=== PATIENT | male | born 1965 | race Caucasian/White ===

== ENCOUNTER 2023-07-06 11:39 | Emergency (ER) | payer OTHER, SELFPAY ==
[2023-07-06] VITALS (8 sets, daily range): BP systolic 155–171; BP diastolic 88–104; PULSE 86–88; RESP 16–18; TEMP 36.8; O2SAT 96–98; BMI 34.7
--- NOTE | 2023-07-06 11:49 | ECG_ITS ---
APPROVED REPORT Exam: Resting ECG HR:82 bpm ECG Measurements Heart Rate 82 AXES CA 156 P 76 QRSd 109 QRS 109 QT 341 T 3 QTc 380 Conclusion SINUS RHYTHM Electronically signed by : LEYDI RIVAS, 07/06/2023 15:56:55
--- NOTE | 2023-07-06 12:20 | ED_ITS ---
Discharge Plan Disposition Patient Disposition: Home, Self-Care Referrals Follow up/Referrals: Emory Yee MD [Physician] - See instructions ProviderJaqui MD [Referring] - See instructions Activity Restrictions/Add. Instructions Additional Instructions/Restrictions: Contact Dr. Emory Yee, information here. Schedule follow-up for evaluation for inspire implant. Call your family doctor to establish care for this visit to the emergency department and schedule follow-up within 48 hours to ensure improvement. If you have any worsening of your condition or any other concerning signs or symptoms, return to the emergency department or your primary care doctor for further evaluation. Clinical Impressions Clinical Impression: Vasovagal syncope Instructions Patient Instructions: DI for Syncope in Adults (Fainting), DI for Syncope in Children (Fainting) Discharge ED Provider: Trevor Devlin HPI General Chief Complaint: Syncope Stated Complaint: syncope Time Seen by Provider: 07/06/23 11:45 History of Present Illness HPI narrative: 57-year-old male history of pulmonary hypertension, JESSICA, hypertension COPD still currently smoking presenting with multiple syncopal episodes. He states this is been going on for months. He has been worked up by cardiology in the past couple of days and had catheterization/stress test and these both came back normal. Is unable to wear CPAP at night due to claustrophobia. States that he has presyncopal and syncopal episodes when coughing, sucking on candy, swallowing, and does not know how to control them. Has seen his family doctor, but feels as if his symptoms have been brushed off. Coming in for further evaluation. Not currently having symptoms and denies chest pain, shortness of breath, nausea, vomiting, palpitations, neurologic deficits, or any other concerns. Related Data Allergies Allergy/AdvReac Type Severity Reaction Status Date / Time No Known Allergies Allergy Verified 07/06/23 12:35 [facility] Disclaimer: The information contained in this section may have been updated after the patient was seen, as this information can be updated by other users. Social History Smoking Status: Current every day smoker alcohol intake: current current occupational status: other Travel in the last 8 weeks: None ROS Obtained: Yes All systems reviewed & no additional complaints except as documented Physical Exam General General appearance: alert Neck Neck exam: Present trachea midline Chest Chest inspection: Present normal inspection and symmetric chest wall rise Respiratory Respiratory exam: Present normal lung sounds bilaterally; Absent respiratory distress, wheezes, stridor, accessory muscle use or prolonged expiratory phase Cardiovascular Cardiovascular exam: Present regular rate and normal rhythm Extremities Exam Extremities exam: Absent edema Neurological Exam Neurological exam: Present alert, oriented X3 and CN II-XII intact Skin Skin exam: Present warm and dry; Absent cyanosis, diaphoresis or pallor HEART Score HEART Score HEART Score assessment performed?: Yes History (anamnesis): Slightly suspicious ECG: Normal Age: 45-65 years Risk factors: 3 or more risk factors Troponin: </= normal limit HEART Score: 3 Critical Care Critical Care Time Critical Care Time: No Medical Decision Making Medical Records Medical records reviewed: Yes I reviewed the patient's medical records. Jim Inquiry Pt receiving controlled substance: No Jim was queried for this patient: No Vital Signs Vital Signs: 07/06/23 11:40 07/06/23 11:57 07/06/23 12:00 Temperature 98.2 F Temperature Source Oral Pulse Rate 87 86 Pulse Rate [Right] 86 Respiratory Rate 16 Blood Pressure 170/104 H 164/88 H Blood Pressure [Right Arm] 171/100 H Blood Pressure Mean 126 120 Blood Pressure Mean [Right Arm] 123 Blood Pressure Source [Right Arm] Automatic Cuff Blood Pressure Position [Right Arm] Sitting 02 Sat by Pulse Oximetry 97 97 98 Oxygen Delivery Method Room Air Room Air Room Air 07/06/23 12:30 07/06/23 13:00 07/06/23 13:30 Temperature Temperature Source Pulse Rate 86 86 Pulse Rate [Right] Respiratory Rate Blood Pressure 168/100 H 155/96 H 158/93 H Blood Pressure [Right Arm] Blood Pressure Mean 126 115 114 Blood Pressure Mean [Right Arm] Blood Pressure Source [Right Arm] Blood Pressure Position [Right Arm] 02 Sat by Pulse Oximetry 97 96 Oxygen Delivery Method Room Air Room Air 07/06/23 14:00 Temperature Temperature Source Pulse Rate 87 Pulse Rate [Right] Respiratory Rate Blood Pressure 163/97 H Blood Pressure [Right Arm] Blood Pressure Mean 110 Blood Pressure Mean [Right Arm] Blood Pressure Source [Right Arm] Blood Pressure Position [Right Arm] 02 Sat by Pulse Oximetry 96 Oxygen Delivery Method Room Air Lab Data Labs: Lab Results 07/06/23 12:00: WBC 11.5 H, RBC 5.82, Hgb 19.7 H, Hct 59.3 H, MCV 101.9 H, MCH 33.8 H, MCHC 33.2, RDW 14.8, Plt Count 248, MPV 7.1 L, Neut % (Auto) 76.2, Lymph % (Auto) 14.2, Traverse % (Auto) 6.9, Eos % (Auto) 1.7, Baso % (Auto) 0.9, Neut # (Auto) 8.8 H, Lymph # (Auto) 1.6, Traverse # (Auto) 0.8, Eos # (Auto) 0.2, Baso # (Auto) 0.1, Sodium 138, Potassium 3.9, Chloride 102, Carbon Dioxide 32 H, Anion Gap 7.9, BUN 12, Creatinine 0.90, Estimated GFR 88, Est GFR ( Amer) 106, Glucose 90, Calcium 8.8, Magnesium 2.3, Total Bilirubin 0.6, AST 33, ALT 38, Alkaline Phosphatase 91, Troponin I < 0.01, NT-Pro-B Natriuret Pep 130 H, Total Protein 6.9, Albumin 3.9, Globulin 3.0, Albumin/Globulin Ratio 1.3 07/06/23 12:00 07/06/23 12:00 Response Orders (Tests/Meds): ED MEDICATIONS Discontinued Medications Generic Name Dose Route Start Last Admin Trade Name Freq PRN Reason Stop Dose Admin Albuterol/Ipratropium 6 ml 07/06/23 12:12 07/06/23 12:43 Ipratropium/Albuterol 3 Ml Neb IH 07/06/23 12:13 6 ml ONCE ONE Administration ORDERS Category Date Time Status Brain Natriuretic Peptide Stat Lab 07/06/23 12:00 Completed CBC w/Auto Diff [Complete Blood Count Auto Diff] Stat Lab 07/06/23 12:00 Completed CMP [Comprehensive Metabolic Panel] Stat Lab 07/06/23 12:00 Completed MAG [Magnesium] Stat Lab 07/06/23 12:00 Completed Trop I [Troponin I] Stat Lab 07/06/23 12:00 Completed Troponin I Q3H Lab 07/06/23 15:15 Ordered Troponin I Q3H Lab 07/06/23 18:15 Ordered MDM Narrative Medical Decision Narrative: 57-year-old male history of pulmonary hypertension, JESSICA, hypertension COPD still currently smoking presenting with multiple syncopal episodes. He states this is been going on for months. He has been worked up by cardiology in the past couple of days and had catheterization/stress test and these both came back normal. Is unable to wear CPAP at night due to claustrophobia. States that he has presyncopal and syncopal episodes when coughing, sucking on candy, swallowing, and does not know how to control them. Has seen his family doctor, but feels as if his symptoms have been brushed off. Coming in for further evaluation. Not currently having symptoms and denies chest pain, shortness of breath, nausea, vomiting, palpitations, neurologic deficits, or any other concerns. History was obtained via conversation with patient. On arrival, patient hemodynamically stable, alert, oriented x4, appropriate, GCS 15, moving all extremities spontaneously, pupils equal and reactive to light. Full physical exam performed and significant for well-appearing male no acute distress. Mildly hypertensive, not tachycardic. Lungs with bilateral minimal end expiratory wheezing, cardiac and pulmonary exam within normal limits otherwise Differential includes vasovagal syncope, orthostatic syncope, hypoxemia, arrhythmia, ACS, KS, COPD exacerbation, among others. Patient was given DuoNeb x 2 for symptomatic management and correction of underlying abnormalities. Workup independently interpreted and significant for elevated leukocytes, hemoglobin, hematocrit concerning for hemoconcentration and dehydration. Chemistry normal, troponin and BNP within normal limits. See radiology read for full review of final results. Independent interpretation of EKG shows sinus rhythm 82 beats a minute without ST or T wave changes concerning for acute anemia. UT, QRS, QT intervals within normal limits. Right axis deviation. Heart score 3. On reevaluation, patient resting comfortably in bed remains baseline.Given patient presentation, workup, history, this most likely represents vasovagal syncope in the setting of dehydration versus orthostatic syncope. Given patient recently had negative cardiogenic workup, this is much less likely. Because patient intolerant of sleep apnea CPAP, he was referred to ENT for further evaluation for inspire implant.
[2023-07-06 12:21] LABS: Basophils # 0.1 K/mm3 (0-0.2); Basophils % 0.9 % (0.1-2.0); Eosinophils # 0.2 K/mm3 (0.0-0.4); Eosinophils % 1.7 % (0.1-12.0); Hematocrit 59.3 % (42.0-52.0); Lymphocytes # 1.6 K/mm3 (0.7-4.5); Lymphocytes % 14.2 % (10-50); Mean Corpuscular HGB Conc 33.2 g/dL (31.8-35.4); Mean Corpuscular Hemoglobin 33.8 pg (27.0-31.2); Mean Corpuscular Volume 101.9 fl (80-94); Mean Platelet Volume 7.1 fl (7.4-10.4); Monocytes # 0.8 K/mm3 (0.1-1.0); Monocytes % 6.9 % (1.7-9.3); Neutrophils # 8.8 K/mm3 (1.8-7.8); Neutrophils % 76.2 % (37.0-80.0); Platelet Count 248 K/mm3 (142-424); Red Blood Count 5.82 M/mm3 (4.60-6.20); Red Cell Distribution Width 14.8 % (11.5-17.5); White Blood Count 11.5 K/mm3 (4.8-10.8)
[2023-07-06 12:26] LABS: Chloride 102 mmol/L (98-107); Potassium 3.9 mmoL/L (3.5-5.1); Sodium 138 mmol/L (136-145)
[2023-07-06 12:28] LABS: Blood Urea Nitrogen 12 mg/dl (9-20); Estimated Glomerular Filt Rate 88 ml/min (>60); GFR (African American) 106 ML/MIN (>60)
[2023-07-06 12:29] LABS: Alanine Aminotransferase 38 U/L (12-78); Albumin Level 3.9 g/dl (3.5-5.0); Albumin/Globulin Ratio 1.3 (1.1-1.8); Alkaline Phosphatase 91 U/L (38-126); Anion Gap 7.9 mEq/L (5-15); Aspartate Amino Transferase 33 U/L (17-59); Bilirubin,Total 0.6 mg/dl (0.2-1.3); Calcium 8.8 mg/dl (8.4-10.2); Carbon Dioxide 32 mmol/L (22.0-30.0); Glucose 90 mg/dl (74-100); Magnesium 2.3 mg/dl (1.6-2.3); Total Protein,Serum 6.9 g/dl (6.3-8.2)
[2023-07-06] MEDS: IPRATROPIUM/ALBUTEROL 3 ML NEB 6 ML IH (12:43)
[2023-07-06 12:55] LABS: Hemoglobin 19.7 g/dL (14.1-18.0)
--- NOTE | 2023-07-06 12:56 | PC.NURSE ---
Rounded on patient. No needs at this time.
[2023-07-06 13:38] LABS: NT Pro Brain Natriuretic Pep. 130 pg/mL (0-125)
[2023-07-06 13:43] LABS: Troponin I < 0.01 ng/ml (0.00-0.034)
== END 2023-07-06 14:43 | disposition home or self-care (01) ==
PROVIDERS: Emergency Provider Emergency Medicine; PCP Family Medicine
DX: R55 Syncope and collapse (principal); I27.20 Pulmonary hypertension, unspecified; G47.33 Obstructive sleep apnea (adult) (pediatric); I10 Essential (primary) hypertension; J44.9 Chronic obstructive pulmonary disease, unspecified; F17.210 Nicotine dependence, cigarettes, uncomplicated
CPT/HCPCS: 80053; 83735; 83880; 84484; 85025; 93005; 99285

== ENCOUNTER 2024-09-30 10:43 | Emergency (ER) | payer OTHER, SELFPAY ==
--- OUTSIDE RECORDS SUMMARY | 2024-08-21 11:00 | XMS_ITS | Encounter Summary ---
Author Organization Healthcare Address [address] [place] [address] Care Team Providers Care Lens Gauger Name Role Phone Pcp, No Primary Care Provider Unavailabl e Reason for Referral * Consultation (Routine) - Authorized Specialty Diagnoses / Procedures Referred By Shelby moura Referred To Contact Diagnoses JESSICA (obstructive sleep apnea) Usman Bell DO [address] [place] [address] Phone: tel: fax: Referral ID Status Reason Start Date Expiration Date V isits Requested Visits Authorized [id number] Authorized 08/21/2024 02/20/2026 1 1 Reason for Visit * Reason Comments inspire Encounter Details Date Type Department Care Team (Late st Contact Info) Description 08/21/2024 11:00 AM EDT Office Visit [facility] Sleep Disorder Center [address] [place] [address] Usman Bell DO [address] [place] [address] JESSICA (obstructive sleep apnea) (Primary Dx) Social History Tobacco Use Types Packs/Day Years Used Date Smoking Tobacco: Every Day Cigarettes 3 45.4 Started: 1979 Passive Smoke Exposure: Current Smokeless Tobacco: Never Alcohol Use Standard Drinks/Week Comments Yes 0 (1 standard drink = 0.6 oz pur e alcohol) once a day of beer. PHQ-2 Answer Date Recorded Patient Health Questionnaire-2 Score 0 07/28/2024 Sex and Gender Information Value Date Recorded Sex Assigned at Male 05/09/2024 6:15 AM EST Legal Sex Male 8:54 PM EDT Gender Identity Not on file Sexual Orientation Not on file documented as of this encounter Last Filed Vital Signs Vital Sign Reading Time Taken Comments Blood Pressure 151/89 08/21/2024 11:00 AM EDT Pulse 60 08/21/2024 11:00 AM EDT Temperature - - Respiratory Rate - - Oxygen Saturation 98% 08/21/2024 11:00 AM EDT Inhaled Oxygen Concentration - - Weight 112 kg (246 lb 14.6 oz) 08/21/2024 10:54 AM EDT Height 182.9 cm (6') 08/21/2024 10:54 AM EDT Body Mass Index 33.49 08/21/2024 10:54 AM EDT documented in this encounter Miscellaneous Notes * Progress Notes - Usman Bell, - 08/21/2024 11:00 AM EDT Visit Type: Established patient Chief Complaint: JESSICA follow up, with inspire History of Present Illness (HPI): Date of Implant - 05/09/24 - Last visit - Outgoing settings - Amplitude- 1.0 Sensation - 0.8 V Functional 1.0 Delay - 30 mins Duration - 6 h Pause- 30 mins Follow up 8 weeks Interval visit - His incoming settings were at amplitude 1.7. The patient is still sleepy, however is able to tolerate inspire without any trouble. ROS: 14 Systems negative except as per HPI. Complete PE Constitutional: No acute distress. Neck: supple, symmetric, trachea at midline. Pulmonary: Breathing equal and symmetrical. Neurologic: grossly intact, extraocular muscles intact. Psychiatric: alert and oriented to place, person, and time. Judgement and insight normal. Assessment JESSICA CPAP intolerance s/p inspire placement Suspected copd Ongoing heavy tobacco abuse BMI 34 Cpap intolerance Htn Plan: Inspire activated - Outgoing settings - Amplitude- 1.7 Range - 1.7-2.7 Delay - 30 mins Duration - 6 h Pause- 30 mins Follow up 8 weeks Work up level every other week as he tolerates Counseling Documentation: The patient was counseled regarding risks and benefit of treatment options. Reviewed data card download and the importance of compliance with therapy. Education provided was verbal counseling.Additional time was spent in care coordination including medical record review. The total time of encounterwas 20 minutes. . -never drive if drowsy. The patient is to let family or friends know if they are sleepy. Pull off the road to a safe location, until help arrives. - Exercise and weight loss can reduce sleep apnea severity. documented in this encounter Plan of Treatment Upcoming Encounters Date Type Department Care Team (Late st Contact Info) Description 10/02/2024 10:00 AM EDT Office Visit [facility] [address] [place] [address] Adan Hernández MD [address] [place] [address] 10/16/2024 11:40 AM EDT Office Visit [facility] Sleep Disorder Center [address] [place] [address] Usman Bell DO [address] [place] [address] Scheduled Referrals Name Type Priority Associated Diagnoses Orde r Schedule Follow Up Sleep Medicine Outpatient Referral Routine JESSICA (obstructive sleep apnea) Expected: 10/16/2024, Expires: 09/20/2025 documented as of this encounter Visit Diagnoses Diagnosis JESSICA (obstructive sleep apnea)- Primary Obstructive sleep apnea (adult) (pediatric) documented in this encounter Additional Health Concerns Assessment Noted Time A fall risk assessment has been complete d for the patient 08/21/2024 10:58 AM EDT A Body Mass Index follow-up plan has been documented for the patient 08/21/2024 4:54 PM EDT documented as of this encounter Care Teams Lens Gauger Relationship Specialty Start Date End Date Pcp, Nisha [address] [place] [address] PCP - General Family Medicine 08/31/23 09/03/24 documented as of this encounter
--- OUTSIDE RECORDS SUMMARY | 2024-09-04 13:15 | XMS_ITS | Encounter Summary ---
Author Organization Healthcare Address [address] [place] [address] Care Team Providers Care Rigger Name Role Phone Adan Hernández MD Unavailable [phone] Tamika Johnson MD Primary Care Provider [phone] Reason for Visit * Reason Comments Follow-up Encounter Details Date Type Department Care Team (Late st Contact Info) Description 09/04/2024 1:15 PM EDT Office Visit [facility] [address] [place] [address] Adan Hernández MD [address] [place] [address] Cellulitis of abdominal wall (Primary Dx); Encounter for adjustment and management of other implanted devices Social History Tobacco Use Types Packs/Day Years Used Date Smoking Tobacco: Every Day Cigarettes 3 45.4 Started: 1977 Passive Smoke Exposure: Current Smokeless Tobacco: Never Tobacco Cessation:Ready to Q uit: Not Asked; Counseling Given: Not Answered Alcohol Use Standard Drinks/Week Comments Yes 0 (1 standard drink = 0.6 oz pur e alcohol) once a day of beer. PHQ-2 Answer Date Recorded Patient Health Questionnaire-2 Score 0 09/04/2024 Sex and Gender Information Value Date Recorded Sex Assigned at Male 05/09/2024 6:15 AM EST Legal Sex Male 8:54 PM EDT Gender Identity Not on file Sexual Orientation Not on file documented as of this encounter Last Filed Vital Signs Vital Sign Reading Time Taken Comments Blood Pressure 133/87 09/04/2024 1:17 PM EDT Pulse 65 09/04/2024 1:17 PM EDT Temperature 36.5 C (97.7 F) 09/04/2024 1:17 PM EDT Respiratory Rate 20 09/04/2024 1:17 PM EDT Oxygen Saturation 98% 09/04/2024 1:17 PM EDT Inhaled Oxygen Concentration - - Weight 109 kg (240 lb 15.4 oz) 09/04/2024 1:17 P M EDT Height 182.9 cm (6') 09/04/2024 1:17 PM EDT Body Mass Index 32.68 09/04/2024 1:17 PM EDT documented in this encounter Functional Status * Over the past 2 weeks, how often have you been bothered by any of the following problems? Question Answer Date of Assessment Author Little interest or pleasure in doing things Not at all 09/04/2024 1:20 PM EDT Day, Jonna D Feeling down, depressed, or hopeless Not at all 08/24 1:20 PM EDT Day, Jonna D Patient Health Questionnaire-2 Score 0 08/24 1:20 PM EDT Day, Jonna D documented as of this encounter Miscellaneous Notes * Progress Notes - Adan Hernández MD - 09/04/2024 1:15 PM EDT Referring physician: No referring provider defined for this encounter. Chief Complaint: Erectile Dysfunction HPI: 58 y.o. male with a history notable for erectile dysfunction. He underwent penile prosthesis insertion on 07/27/23. His initial postoperative course was complicated by subcutaneous hematoma that slowly improved over the a few weeks. He has since recovered well from surgery and presents today fordevice activation and teaching. He actually had sex using this device even though it wasn't fully inflated. He denies fever, chills, redness, any signs of infection. Physical Exam: Visit Vitals Smoking Status Every Day Patient in no acute distress Penoscrotal incision well healed left lower abdominal incision is almost entirely healed, but at the corner there is serous red discharge, I expressed about 3-5 ml, no purulence or surrounding erythema or tenderness to suggest infection Normal circumcised phallus. Meatus patent. No cutaneous lesions. Normal testes bilaterally without nodules. Pump present in dependent scrotum Penile hematoma has completely resolved Device Cycling: The implant inflated and deflated appropriately. The patient was instructed on this process and demonstrated his ability to inflate and deflate the device on his own. The cylinder tips filled the glans symmetrically upon full inflation. Problems addressed in this visit: erectile dysfunction s/p inflatable penile prosthesis insertion Assessment and Plan: 58 y.o. male with erectile dysfunction s/p penile prosthesis insertion in 07/2024. He is doing well and has been cleared to resume enjoyable sexual activity. He appears to have had a small seroma beneath the LLQ that I expressed today. This does not appear to be associated with infection. I sent him 10 days of doxycyline as a precaution and will recheck his abdominal incision next week. RTC 09/14/24 for wound check documented in this encounter Plan of Treatment Upcoming Encounters Date Type Department Care Team (Late st Contact Info) Description 10/02/2024 10:00 AM EDT Office Visit [facility] [address] [place] [address] Adan Hernández MD [address] [place] [address] 10/16/2024 11:40 AM EDT Office Visit [facility] Sleep Disorder Center [address] [place] [address] Usman Bell DO [address] [place] [address] documented as of this encounter Visit Diagnoses Diagnosis Cellulitis of abdominal wall- Primary Cellulitis and abscess of trunk Encounter for adjustment and management of other implanted devices documented in this encounter Additional Health Concerns Assessment Noted Time A fall risk assessment has been complete d for the patient 09/04/2024 1:20 PM EDT A Body Mass Index follow-up plan has been documented for the patient 09/04/2024 1:41 PM EDT documented as of this encounter Care Teams Rigger Relationship Specialty Start Date End Date Tamika Johnson MD [address] [place] [address] PCP - General 09/04/24 Adan Hernández MD [id number] [place] [address] Consulting Physician Urology 09/04/24 documented as of this encounter
--- OUTSIDE RECORDS SUMMARY | 2024-09-14 10:30 | XMS_ITS | Encounter Summary ---
Author Organization Healthcare Address [address] [place] [address] Care Team Providers Care Sales Associate Cashier Name Role Phone Adan Hernández MD Unavailable [phone] Tamika Johnson MD Primary Care Provider [phone] Encounter Details Date Type Department Care Team ([facility] st Contact Info) Description 09/14/2024 10:30 AM EDT Office Visit Medical Office Building Urology [address] [facility], [address] [place] [address] Adan Hernández MD [address] [facility] [address] [place] [address] Erectile dysfunction, unspecified erectile dysfunction type (Primary Dx) Social History Tobacco Use Types Packs/Day Years Used Date Smoking Tobacco: Every Day Cigarettes 3 45.4 Started: 1979 Passive Smoke Exposure: Current Smokeless Tobacco: Never Alcohol Use Standard Drinks/Week Comments Yes 0 (1 standard drink = 0.6 oz pur e alcohol) once a day of beer. PHQ-2 Answer Date Recorded Patient Health Questionnaire-2 Score 0 09/14/2024 PHQ-9 Answer Date Recorded Patient Health Questionnaire-9 Score 0 09/14/2024 Sex and Gender Information Value Date Recorded Sex Assigned at Male 05/09/2024 6:15 AM EST Legal Sex Male 8:54 PM EDT Gender Identity Not on file Sexual Orientation Not on file documented as of this encounter Last Filed Vital Signs Vital Sign Reading Time Taken Comments Blood Pressure 125/80 09/14/2024 10:04 AM EDT Pulse 88 09/14/2024 10:04 AM EDT Temperature 36.7 C (98.1 F) 09/14/2024 10:04 AM EDT Respiratory Rate - - Oxygen Saturation 98% 09/14/2024 10:04 AM EDT Inhaled Oxygen Concentration - - Weight 109 kg (240 lb 4.8 oz) 09/14/2024 10:04 A M EDT Height 185.4 cm (6' 1 ) 09/14/2024 10:04 AM EDT Body Mass Index 31.7 09/14/2024 10:04 AM EDT documented in this encounter Functional Status * Over the past 2 weeks, how often have you been bothered by any of the following problems? Question Answer Date of Assessment Author Little interest or pleasure in doing things Not at all 09/14/2024 10:05 AM Rodrick Clemons Feeling down, depressed, or hopeless Not at all 09/14/2024 10:05 AM Rodrick Clemons Patient Health Questionnaire -2 Score 0 09/14/2024 10:05 AM Rodrick Clemons * Question Answer Date of Assessment Author Trouble falling or staying asleep, or sleeping too much Not at all 09/14/2024 10:05 AM Rodrick Clemons Feeling tired or having griffin le energy Not at all 09/14/2024 10:05 AM Rodrick Clemons Poor appetite or overeating Not at all 09/14/2024 10 :05 AM Rodrick Clemons Feeling bad about yourself - or that you are a failure or have let yourself or your family down Not at all 09/14/2024 10:05 AM Rodrick Pisano Trouble concentrating on thi ngs, such as reading the newspaper or watching television Not at all 09/14/2024 10:05 AM Rodrick Clemons Moving or speaking so slowly that other people could have noticed? Or the opposite - being so fidgety or restless that you have been moving around a lot more than usual. Not at all 09/14/2024 10:05 AM Rodrick Clemons Thoughts that you would be b surya off or hurting yourself in some way Not at all 09/14/2024 10:05 AM Rodrick Clemons Patient Health Questionnaire -9 Score 0 09/14/2024 10:05 AM Rodrick Clemons * If you checked off any problems on this questionnaire so far, Question Answer Date of Assessment Author How difficult have these problems made it for you to do your work, take care of things at home, or get along with other people? Not difficult at all 09/14/2024 10:05 AM Rodrick Clemons documented as of this encounter Miscellaneous Notes * Progress Notes - Adan Hernández MD - 09/14/2024 10:30 AM EDT Images from the original note were not included. Referring physician: No referring provider defined for this encounter. Chief Complaint: Erectile Dysfunction HPI: 58 y.o. male with a history notable for erectile dysfunction. He underwent penile prosthesis insertion on 07/27/23. His initial postoperative course was complicated by subcutaneous hematoma that slowly improved over the a few weeks. He has since recovered well from surgery and presented for device activation and teaching on 09/04/24. At that time I noticed very small volume serous drainage fromthe lateral corner of his left lower quadrant counter incision. There was no purulence, tenderness,or redness to suggest device infection. I started him on PO antibiotics and he returns today for repeat wound check. He has used the implant and is very pleased with the function of the device. He again denies fever, chills, redness, any signs of infection. He does endorse very small volume fluid discharge from the counter incision. Physical Exam: Visit Vitals BP 125/80 Pulse 88 Temp 36.7 ??C (98.1 ??F) Ht 1.854 m (6' 1 ) Wt 109 kg (240 lb 4.8 oz) SpO2 98% BMI 31.70 kg/m?? Smoking Status Every Day BSA 2.37 m?? Patient in no acute distress Penoscrotal incision well healed left lower abdominal incision is almost entirely healed, but in the middle of the incision there guillermo very tiny opening and there is clear serous discharge, I expressed about 1-2 ml, no purulence or surrounding erythema or tenderness to suggest infection Normal circumcised phallus. Meatus patent. No cutaneous lesions. Normal testes bilaterally without nodules. Pump present in dependent scrotum Penile hematoma has completely resolved Problems addressed in this visit: erectile dysfunction s/p inflatable penile prosthesis insertion Assessment and Plan: 58 y.o. male with erectile dysfunction s/p penile prosthesis insertion in 07/2024. He is doing well and has been cleared to resume enjoyable sexual activity. He appears to have had a small seroma beneath the LLQ that appears to be slowly resolving. This does not appear to be associated with infection. He has completed 10 days of doxycyline as a precautionand will recheck his abdominal incision in two weeks. He knows to contact me if he notices any changes in the volume or character of the drainage or any concerns for infection. RTC in two weeks for wound check documented in this encounter Plan of Treatment Upcoming Encounters Date Type Department Care Team (Late st Contact Info) Description 10/02/2024 10:00 AM EDT Office Visit [facility] [address] [place] [address] Adan Hernández MD [address] [place] [address] 10/16/2024 11:40 AM EDT Office Visit [facility] Sleep [facility] Center [address] [place] [address] Usman Bell DO [address] [place] [address] documented as of this encounter Visit Diagnoses Diagnosis Erectile dysfunction, unspecified erectile dysfunction type- Primary documented in this encounter Additional Health Concerns Assessment Noted Time PHQ-9 Depression Total Score: 0 09/15/19 25 10:05 AM EDT A fall risk assessment has been complete d for the patient 09/14/2024 10:06 AM EDT A Body Mass Index follow-up plan has been documented for the patient 09/14/2024 10:21 AM EDT documented as of this encounter Care Teams Sales Associate Cashier Relationship Specialty Start Date End Date Tamika Johnson MD [address] [place] [id number] PCP - General 09/04/24 Adan Hernández MD [address] [facility] [address] [place] [address] Consulting Physician Urology 09/04/24 documented as of this encounter
[2024-09-30] VITALS (10 sets, daily range): BP systolic 113–133; BP diastolic 65–102; PULSE 73–87; RESP 15–23; TEMP 36.6; O2SAT 94–97; BMI 32.5
--- NOTE | 2024-09-30 10:53 | ECG_ITS ---
APPROVED REPORT Exam: Resting ECG HR:81 bpm ECG Measurements Heart Rate 81 AXES FL 154 P 74 QRSd 119 QRS 105 QT 375 T 41 QTc 413 Conclusion SINUS RHYTHM WITH SINUS ARRHYTHMIA RIGHT AXIS DEVIATION [QRS AXIS > 100] POSSIBLE INFERIOR MYOCARDIAL INFARCTION , PROBABLY OLD [30 ms Q WAVE IN II/aVF] No STEMI Electronically signed by : KALIN GIRALDO, 09/30/2024 14:58:54
--- NOTE | 2024-09-30 10:55 | PC.NURSE ---
FSBS was 116 at this time.
--- OUTSIDE RECORDS SUMMARY | 2024-09-30 11:05 | XMS_ITS | Encounter Summary ---
Author Organization Healthcare Address [address] [place] [address] Care Team Providers Care Caretaker Grounds Name Role Phone Pcp, No Primary Care Provider Unavailabl e Encounter Details Date Type Department Care Team (Latest Contact Info) Description 08/21/2024 Travel Social History Tobacco Use Types Packs/Day Years [...] on file documented as of this encounter Plan of Treatment Upcoming Encounters Date Type Department Care Team (Late st Contact Info) Description 10/02/2024 10:00 AM EDT Office Visit [facility] [address] [place] [address] Adan Hernández MD [address] [place] [address] 10/16/2024 11:40 AM EDT Office Visit [facility] Sleep Disorder Center [address] [place] [address] Usman Bell, DO [address] [place] [address] documented as of this encounter Visit Diagnoses Not on filedocumented in this encounter Additional Health Concerns Assessment Noted Time A fall risk assessment has been complete d for the patient 08/21/2024 10:58 AM EDT A Body Mass Index follow-up plan has been documented for the patient 08/21/2024 4:54 PM EDT documented as of this encounter Care Teams Caretaker Grounds Relationship Specialty Start Date End Date Pcp, [place] [address] PCP - General Family Medicine 08/31/23 09/03/24 documented as of this encounter
--- OUTSIDE RECORDS SUMMARY | 2024-09-30 11:05 | XMS_ITS | Encounter Summary ---
Author Organization Healthcare Address [address] [place] [address] Care Team Providers Care Test Examiner Name Role Phone Adan Hernández MD Unavailable [phone] Tamika Johnson MD Primary Care Provider [phone] Encounter Details Date Type Department Care Team (Late st Contact Info) Description 09/19/2024 Telephone [facility] [address] [place] [address] Adan Hernández MD [address] [place] [address] Social History Tobacco Use Types Packs/Day Years [...] on file documented as of this encounter Miscellaneous Notes * Telephone Encounter - Adan Hernández MD - 09/19/2024 8:57 AM EDT Called patient to check in. He reports that the left lower quadrant incision has improved, feels less swollen, and is no longer having any fluid drainage. He denies redness, tenderness, pain, fevers,or other concerns for infection. This is encouraging and we will continue to closely monitor. documented in this encounter Plan of Treatment Upcoming Encounters Date Type Department Care Team (Late st Contact Info) Description 10/02/2024 10:00 AM EDT Office Visit [facility] [address] [place] [address] Adan Hernández MD [address] [facility] [address] [place] [address] 10/16/2024 11:40 AM EDT Office Visit [facility] Sleep Disorder Center [address] [place] [phone] Usman Bell DO [address] [place] [address] documented as of this encounter Visit Diagnoses Not on filedocumented in this encounter Additional Health Concerns Assessment Noted Time PHQ-9 Depression Total Score: 0 09/15/19 10:05 AM EDT A fall risk assessment has been complete d for the patient 09/14/2024 10:06 AM EDT A Body Mass Index follow-up plan has been documented for the patient 09/14/2024 10:21 AM EDT documented as of this encounter Care Teams Test Examiner Relationship Specialty Start Date End Date Tamika Johnson MD [address] [place] [address] PCP - General 09/04/24 Adan Hernández MD [address] [place] [address] Consulting Physician Urology 09/04/24 documented as of this encounter
--- OUTSIDE RECORDS SUMMARY | 2024-09-30 11:05 | XMS_ITS | Clinical Summary ---
Author Organization Healthcare Address [address] [place] [address] Care Team Providers Care Linter Saw Sharpener Name Role Phone Adan Hernández MD Unavailable Tamika Johnson MD Primary Care Provider [phone] Allergies No known active allergies Medications albuterol (2.5 MG/3ML) 0.083% nebulizer solution as needed. 4 Active ergocalciferol 1.25 MG (33801 UT) capsule Take 1 capsule by mouth 1 (one) time per week. Wednesday 4 Active hydroCHLOROthia zide (HYDRODiuril) 25 MG tablet Take 2 tablets by mouth in the morning. 4 Active losartan (Cozaar) 50 MG tablet Take 1 tablet by mouth in the morning. 4 Active sildenafil (Revatio) 20 MG tablet TAKE UP TO FIVE (5) TABLETS BY MOUTH DAILY NEEDED AT LEAST ONE HOUR PRIOR TO SEXUAL ACTIVITY 4 Active testosterone cypionate (Depo-Testoster one) 200 MG/ML injection Inject 1 mL into the muscle 1 (one) time per week. Wednesday 4 Active B-D 3CC LUER-JUAN SYR 20GX1 20G X 1 3 ML misc USE DIRECTED FOR WEEKLY INJECTIONS 3 Active B-D 3CC LUER-JUAN SYR 32MH0-4/2 21G X 1-1/2 3 ML misc USE DIRECTED FOR WEEKLY INJECTIONS 4 Active Umeclidinium-Vi lanterol (Anoro Ellipta) 62.5-25 MCG/ACT aerosol powder aerosol powder Inhale 1 Inhalation nightly. Pt reports taking every once in a while. Active albuterol 108 (90 Base) MCG/ACT inhaler Inhale 2 puffs as needed in the morning and 2 puffs as needed at noon and 2 puffs as needed in the evening and 2 puffs as needed before bedtime for wheezing. Active omeprazole OTC (PriLOSEC OTC) 20 MG EC tablet Take 1 tablet by mouth in the morning. Do not crush, chew, or split. Active HYDROcodone-autumn taminophen (Loogootee) 5-325 MG tablet Take 1 tablet (5 mg of hydrocodone) by mouth every 6 (six) hours if needed for moderate pain for up to 25 doses. 25 tablet 5 Active Additional Information Patient not taking.Reported on 09/14/2024 tadalafil (Adcirca) 20 MG tablet TAKE ONE (1) TABLET EVERY DAY BY ORAL ROUTE. 4 Active oxyCODONE (Roxicodone) 5 MG immediate release tablet Take 1 tablet by mouth every 6 hours as needed for severe pain. 8 tablet 5 Active Additional Information Patient not taking.Reported on 09/04/2024 meloxicam (Mobic) 15 MG tablet Take 1 tablet PO daily as needed for pain. 30 tablet 5 Active Additional Information Patient not taking.Reported on 09/04/2024 methocarbamol (Robaxin) 750 MG tablet 5 Active methylPREDNISol one (Medrol Dospak) 4 MG tablets 5 Active HYDROcodone-autumn taminophen (Loogootee) 7.5-325 MG tablet 5 Active doxycycline (Adoxa) 100 MG tabletIndicatio ns:Cellulitis of abdominal wall Take 1 tablet by mouth 2 times a day for 10 days. Take with a full glass of water and do not lie down for at least 30 minutes after 20 tablet 5 09/15/19 25 Active Problems Problem Noted Date Diagnosed Date Erectile dysfunction 06/26/2024 JESSICA (obstructive sleep apnea) 09/09/2023 Encounters Date Type Department Care Team Description 09/19/2024 Telephone [facility] Urology [address], [address] [place] [address] Adan Hernández MD 09/14/2024 10:30 AM EDT Office Visit [facility] U[facility] [address] [facility], [address] [place] [address] Adan Hernández MD Erectile dysfunction, unspecified erectile dysfunction type (Primary Dx) 09/14/2024 Travel 09/04/2024 1:15 PM EDT Office Visit [facility] Urology [address], [address] [place] [address] Adan Hernández MD Cellulitis of abdominal wall (Primary Dx); Encounter for adjustment and management of other implanted devices 09/04/2024 Travel 08/21/2024 11:00 AM EDT Office Visit [facility] Disorder [facility] [address] [facility] [place] [phone] Usman Bell DO JESSICA (obstructive sleep apnea) (Primary Dx) 08/21/2024 Travel 08/03/2024 Telephone [facility] Otolaryngology [address], 3[address] [place] [address] Gatito Dobbs PA 07/31/2024 11:15 AM EDT Office Visit [facility] Urology [address], [address] [place] [address] Adan Hernández MD Erectile dysfunction, unspecified erectile dysfunction type (Primary Dx) 07/31/2024 Travel 07/28/2024 8:00 AM EDT Office Visit [facility] Urology [address] 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) 07/28/2024 Travel 07/27/2024 Telephone [facility] Urology [address], [address] [place] [address] Adna Hernández MD 07/26/2024 8:00 AM EDT Anesthesia Event [facility] [address] [place] [phone] Aj Miles MD Blackman, Emily M, CRNA, DNP 07/26/2024 8:00 AM EDT - 07/26/2024 10:30 AM EDT Surgery [facility] [address] [place] [phone] Adan Hernández MD INSERTION, PENILE PROSTHESIS [46042 (CPT )] 07/26/2024 5:30 AM EDT - 07/26/2024 12:02 PM EDT Hospital Encounter [facility] [address] [place] [address] Adan Hernández MD Erectile dysfunction following urethral surgery (Primary Dx) Discharge Disposition: Home or Self Care 07/26/2024 Telephone [facility] Urology [address], [address] [place] [address] Adan Hernández MD 07/26/2024 Telephone [facility] Urology [address], [place] [address] Adan Flores MD 07/26/2024 Telephone [facility] Urology [address], [address] [place] [address] Adan Hernández MD HCN Clinical Concern/Question 07/26/2024 Travel 07/19/2024 Telephone [facility] Urology [address], [address] [place] [address] Adan Hernández MD from Last 3 Months Family History Medical History Relation Name Comments Cancer Father Cancer Mother Leukemia Sister Malig Hyperthermia Neg Hx Relation Name Status Comments Father Mother Sister Social History Tobacco Use Types Packs/Day Years [...] on file Sexual Orientation Not on file Last Filed Vital Signs Vital Sign Reading Time Taken Comments Blood Pressure 125/80 09/14/2024 10:04 AM EDT Pulse 88 09/14/2024 10:04 AM EDT Temperature 36.7 C (98.1 F) 09/14/2024 10:04 AM EDT Respiratory Rate 20 09/04/2024 1:17 PM EDT Oxygen Saturation 98% 09/14/2024 10:04 AM EDT Inhaled Oxygen Concentration - - Weight 109 kg (240 lb 4.8 oz) 09/14/2024 10:04 A M EDT Height 185.4 cm (6' 1 ) 09/14/2024 10:04 AM EDT Body Mass Index 31.7 09/14/2024 10:04 AM EDT Plan of Treatment Upcoming Encounters Date Type Department Care Team (Late st Contact Info) Description 10/02/2024 10:00 AM EDT Office Visit [facility] [address], [address] [place] [address] Adan Hernández MD [address] [place] [address] 10/16/2024 11:40 AM EDT Office Visit [facility] Sleep Disorder Center [address], 4th [place] [address] Usman Bell DO [address] [place] [address] Health Maintenance Due Date Last Done Comments [facility]-HIV Screening 1967 [facility]-Hepatitis C Screening 1967 [facility]-Infant/Child/Adol SDOH Screenings 1965 [facility]- SDOH Screenings 10/12/1985 [facility]-Adult SDOH Screenings 10/12/1985 [facility]-DTaP,Tdap,and Td Vaccines (1 - Tdap) 10/12/1986 [facility]-Hepatitis B Vaccines (1 of 3 - 19+ 3-dose series) 10/12/1986 [facility]-Pneumococcal Vaccine: 50+ Years (1 of 2 - PCV) 10/12/1986 CT Colonography 10/12/2012 Colonoscopy 10/12/2012 FIT-DNA 10/12/2012 FIT 10/12/2012 FOBT 10/12/2012 Sigmoidoscopy 10/12/2012 [facility]-Colorectal Cancer Screening 10/12/2012 [facility]-Lung Cancer Screening 10/12/2017 [facility]-Zoster Vaccines (1 of 2) 10/12/2017 [id number]-[id number]-64 Vaccine (1 - season) 2023 [facility]-Influenza Vaccine (Season Ended) 2024 [facility]-Depression Screening 09/14/2025 09/14/2024, 08/25 [facility]-Obesity Intervention Completed 025, 09/04/2024, 08/21/2024, Additional history exists HPV Vaccines Aged Out No longer eligi ble based on patient's age to complete this topic [facility]-HIB Vaccines Aged Out No longer e ligible based on patient's age to complete this topic [facility]-Hepatitis A Vaccines Aged Out No longer eligible based on patient's age to complete this topic [facility]-IPV Vaccines Aged Out No longer e ligible based on patient's age to complete this topic [facility]-Rotavirus Vaccines Aged Out No lo nger eligible based on patient's age to complete this topic Medical Devices Implanted Type Area Host Hostess Device Identifier Shelf Expiration Date Model / Serial / Lot Lead Stimulation Inspire - [id number] - [id number] Implanted:Qty: 1 on 05/09/2024 by Francois Morrow MD at [facility] Lead Right: Neck [employer]-[id number] 03/29/2026 4063 / [id number] / Lead Respiratory Sensing Inspire - [id number] - [id number] Implanted:Qty: 1 on 05/09/2024 by Fracnois Morrow MD at [facility] Lead Right: Neck [employer]-[id number] 11/11/2026 4340 / [id number] / Generator Implantable Pulse Inspire Iv - [id number] - [id number] Implanted:Qty: 1 on 05/09/2024 by Francois Morrow MD at [facility] Lead Right: Chest Inspire [employer]-[id number] 10/26/2026 3028 / [id number] / Kit Ams 700 Accessory - [id number] Implanted:Qty: 1 on 07/26/2024 by Adan Hernández MD at [facility] N/A: Scrotum [id number] 06/21/2029 [id number] / / [id number] Retractor Male Sling - [id number] Implanted:Qty: 1 on 07/26/2024 by Adan Hernández MD at [facility] N/A: Scrotum [id number] 02/15/2029 [id number] / / [id number] Lucky Sort Rear Tip Qm Consultant 1cm Implanted:Qty: 1 on 07/26/2024 by Adan Hernández MD at [facility] N/A: Scrotum Anpro21 05/16/2029 [id number] / / [id number] Conceal Iz - [id number] Implanted:Qty: 1 on 07/26/2024 by Adan Hernández MD at [facility] N/A: Scrotum [id number] 05/22/2026 [id number] / / [id number] Cx Preconnect Ms 21cm Ps Iz - [id number] Implanted:Qty: 1 on 07/26/2024 by Adan Hernández MD at [facility] N/A: Scrotum [id number] 44 06/09/2026 [id number] / / [id number] Procedures Procedure Name Priority Date/Time Associated Diagnosis Comments PB ANESTHESIA PLACEHOLDER Routine 07/26/2024 8:11 AM EDT NV AN ELECTIVE ENDOTRACHEAL AIRWAY Routine 07/26/2024 8:11 AM EDT NV INSERT,INFLATABLE PENILE PROSTHESIS 07/26/2024 7:49 AM EDT Erectile dysfunction, unspecified erectile dysfunction type POCT GLUCOSE METER UNSOLICITED RESULTS Routine 07/26/2024 6:38 AM EDT from Last 3 Months Results * NV AN ELECTIVE ENDOTRACHEAL AIRWAY, PB ANESTHESIA PLACEHOLDER (07/26/2024 8:11 AM EDT) Narrative Anais Cooper CRNA, DNP - 07/26/2024 8:11 AM EDT Anais Cooper CRNA, DNP 07/26/2024 8:32 AM Airway Date/Time: 07/26/2024 8:11 AM Reason: elective Airway not difficult General Information and Staff Patient location during procedure: [place] ATTENDANT: Anais Cooper CRNA, DNP Performed: AMANDA Patient Condition Indications for airway management: anesthesia Patient position: sniffing Final Airway Details Final airway type: endotracheal airway Successful airway: ETT Cuffed: yes Successful intubation technique: direct laryngoscopy Adjuncts used in placement: intubating stylet Endotracheal tube insertion site: oral Blade: Melvin Blade size: #4 ETT size (mm): 7.5 Cormack-Lehane Classification: grade IIb - view of arytenoids or posterior of glottis only Placement verified by: chest auscultation and capnometry Measured from: lips ETT to lips (cm): 22 Additional Comments Atraumatic. No change to dentition. us Aj Miles MD ANESTHESIA ORDERABLES Final Result * (ABNORMAL) POCT glucose meter (07/26/2024 6:38 AM EDT) [facility] POCT Glucose 104(H) 74 - 99 mg/dL 07/26/2024 6:40 AM EDT [facility] Comment:Accuracy of a glucos e result obtained from a capillary whole blood specimen relies upon adequate, non-compromised capillary blood flow. If the capillary glucose result is not consistent with the patient's clinical signs and symptoms, glucose testing should be repeated with either an arterial or venous sample on the glucometer or sent to the main labortory for testing. Comment 07/26/2024 6:40 AM EDT [employer] [facility] Chemist Instrumentation ID Lucie Abebe 07/26/2024 6:40 AM EDT [facility] Device ID [id number] 07/26/2024 6:40 AM EDT HEALTH[facility]ARE [facility] Specimen Type POC Venous 07/26/2024 6:40 AM EDT [facility]ALTH[facility]ARE [facility] Blood Venous blood specimen / Unknown 07/26/2024 6:38 AM EDT 07/26/2024 6:40 AM EDT us Adan Hernández MD LAB POINT OF CARE TEST DOCKED DEVICE UNSOLICITED RESULTS Final Result [facility] [address] [place] [address] from Last 3 Months Insurance [employer]ICA[employer] Care Teams Linter Saw Sharpener Relationship Specialty Start Date End Date Tamika Johnson MD [address] [place] [address] PCP - General 09/04/24 Adan Hernández MD [address] [place] [address] Consulting Physician Urology 09/04/24
--- OUTSIDE RECORDS SUMMARY | 2024-09-30 11:05 | XMS_ITS | Encounter Summary ---
Author Organization Healthcare Address [address] [place] [address] Care Team Providers Care Tire Debeader Name Role Phone Pcp, No Primary Care Provider Unavailabl e Encounter Details Date Type Department Care Team (Late st Contact Info) Description 08/03/2024 Telephone [facility] Ot[facility] [address], [address] [place] [address] Gatito Dobbs, PA [address] [place] [address] Social History Tobacco Use Types [...] encounter Miscellaneous Notes * Telephone Encounter - Dana Mixon - 08/03/2024 1:17 PM EDT Clinical Concern/Question Reason for Call: pt needs a 8w fu for inspire post op. Was unsure which provider. Best contact number: [phone] (home) Optimal time of day to reach caller: ANYTIME Additional comments/information from caller: None Note: Please do not reply to this message. Follow-up communication and further actions as a result of this message need to be communicated with the patient directly, if the patient is not active onMyChart. If the patient is active on MyChart, they will receive notification of the communication/outcome via MyChart. documented in this encounter Plan of Treatment Upcoming Encounters Date Type Department Care Team (Late st Contact Info) Description 10/02/2024 10:00 AM EDT Office Visit [facility] [address], [address] [place] [address] Adan Hernández MD [address] [place] [address] 10/16/2024 11:40 AM EDT Office Visit [facility] Sleep Disorder Center [address] [place] [address] Usman Bell, [address] [place] [address] documented as of this encounter Visit Diagnoses Not on filedocumented in this encounter Additional Health Concerns Assessment Noted Time A fall risk assessment has been complete d for the patient 07/28/2024 9:37 AM EDT A Body Mass Index follow-up plan has been documented for the patient 07/31/2024 12:15 PM EDT documented as of this encounter Care Teams Tire Debeader Relationship Specialty Start Date End Date Pcp, [place] [address] PCP - General Family Medicine 08/31/23 09/03/24 documented as of this encounter
--- OUTSIDE RECORDS SUMMARY | 2024-09-30 11:05 | XMS_ITS | Encounter Summary ---
Author Organization Healthcare Address [address] [place] [address] Care Team Providers Care Boiler Tender Name Role Phone Adan Hernández MD Unavailable [phone] Tamika Johnson MD Primary Care Provider [phone] Encounter Details Date Type Department Care Team (Latest Contact Info) Description 09/14/2024 Travel Social History Tobacco Use Types Packs/Day [...] on file documented as of this encounter Functional Status * Over the [...] Rodrick Clemons documented as of this encounter Plan of Treatment Upcoming Encounters Date Type Department Care Team (Late st Contact Info) Description 10/02/2024 10:00 AM EDT Office Visit [facility] [address], [address] [place] [address] Adan Hernández MD [address] [place] [address] 10/16/2024 11:40 AM EDT Office Visit [facility] Sleep Disorder Center [address], [address] [place] [address] Usman Bell, DO [address] [place] [address] documented as of this encounter [...] documented as of this encounter Care Teams Boiler Tender Relationship Specialty Start Date End Date Tamika Johnson MD [address] [place] [address] PCP - General 09/04/24 Adan Hernández MD [address] [place] [address] Consulting Physician Urology 09/04/24 documented as of this encounter
--- OUTSIDE RECORDS SUMMARY | 2024-09-30 11:05 | XMS_ITS | Encounter Summary ---
Author Organization Healthcare Address [address] [place] [address] Care Team Providers Care Rotary Lithographic Press Operator Name Role Phone Pcp, No Primary Care Provider Unavailabl e Encounter Details Date Type Department Care Team (Late st Contact Info) Description 07/19/2024 Telephone [place] [facility] [address], [address] [place] [address] Adan Hernández MD [address] [place] [address] Social History Tobacco Use Types Packs/Day Years Used Date Smoking Tobacco: Every Day Cigarettes 3 45.4 Started: 1977 Smokeless Tobacco: Never Alcohol Use Standard Drinks/Week [...] pleasure in doing things Not at all 07/28/2024 9:38 AM EDT Day, Jonna D Feeling down, depressed, or hopeless Not at all 07/2024 9:38 AM EDT Day, Jonna D Patient Health Questionnaire-2 Score 0 07/2024 9:38 AM EDT Day, Jonna D documented as of this encounter Miscellaneous Notes * Telephone Encounter - Yolis Balbuena - 07/19/2024 11:45 AM EDT Spoke with patient, notified him preop will reach back out to complete pre surgery screening * Telephone Encounter - Lucie Osuna - 07/19/2024 10:36 AM EDT Clinical Concern/Question Reason for Call: Patient says he missed a call from preop and can't seem to get them to answer. He requests a call back from a coordinator for assistance. Thank you Best contact number: [phone] (mobile) Optimal time of day to reach caller: ANYTIME Additional comments/information from caller: None Note: Please do not reply to this message. Follow-up communication and further actions as a result of this message need to be communicated with the patient directly, if the patient is not active onMyChart. If the patient is active on MyChart, they will receive notification of the communication/outcome via [employer]. documented in this encounter Plan of Treatment Upcoming Encounters Date Type Department Care Team (Late st Contact Info) Description 10/02/2024 10:00 AM EDT Office Visit [place] [facility] [address] [place] [address] Adan Hernández MD [address] [place] [address] 10/16/2024 11:40 AM EDT Office Visit [facility] Sleep Disorder Center [address] [place] [address] Usman Bell, [address] [place] [address] documented as of this encounter Visit Diagnoses Not on filedocumented in this encounter Additional Health Concerns Assessment Noted Time A fall risk assessment has been complete d for the patient 06/26/2024 1:13 PM EST A Body Mass Index follow-up plan has been documented for the patient 06/26/2024 2:11 PM EST documented as of this encounter Care Teams Rotary Lithographic Press Operator Relationship Specialty Start Date End Date Pcp, [place] [address] PCP - General Family Medicine 08/31/23 09/03/24 documented as of this encounter
--- OUTSIDE RECORDS SUMMARY | 2024-09-30 11:05 | XMS_ITS | Encounter Summary ---
Author Organization Healthcare Address [address] [place] [address] Care Team Providers Care Director Of Corporate Strategy Name Role Phone Adan Hernández MD Unavailable [phone] Tamika Johnson MD Primary Care Provider [phone] Encounter Details Date Type Department Care Team (Latest Contact Info) Description 09/04/2024 Travel Social History Tobacco Use Types Packs/Day [...] Jonna D documented as of this encounter Plan of Treatment Upcoming Encounters Date Type Department Care Team (Late Contact Info) Description 10/02/2024 10:00 AM EDT Office Visit [place] [facility] [address], [address] [place] [address] Adan Hernández MD [address] [place] [address] 10/16/2024 11:40 AM EDT Office Visit [facility] Sleep Disorder Center [address] [place] [address] Usman Bell DO [address] [place] [address] documented as of this encounter Visit Diagnoses Not on filedocumented in this encounter Additional Health Concerns Assessment Noted Time A fall risk assessment has been complete d for the patient 09/04/2024 1:20 PM EDT A Body Mass Index follow-up plan has been documented for the patient 09/04/2024 1:41 PM EDT documented as of this encounter Care Teams Director Of Corporate Strategy Relationship Specialty Start Date End Date Tamika Johnson MD [address] [place] [address] PCP - General 09/04/24 Adan Hernández MD [address] [place] [address] Consulting Physician Urology 09/04/24 documented as of this encounter
--- NOTE | 2024-09-30 11:13 | CT_ITS ---
PROCEDURE INFORMATION: Exam: CT Head Without Contrast Exam date and time: 09/30/2024 11:41 AM Age: 58 years old Clinical indication: Other: Confusion, fatigue, falling asleep frequently TECHNIQUE: Imaging protocol: Computed tomography of the head without contrast. Radiation optimization: All CT scans at this facility use at least one of these dose optimization techniques: automated exposure control; mA and/or kV adjustment per patient size (includes targeted exams where dose is matched to clinical indication); or iterative reconstruction. COMPARISON: No relevant prior studies available. FINDINGS: Brain: Cody-white matter differentiation and sulcation pattern is normal. There is normal density in the basal ganglia and thalamus. There is no intracranial hemorrhage. There are no pathologic extra-axial fluid collections. Cerebral ventricles: No ventriculomegaly. Paranasal sinuses: Visualized sinuses are unremarkable. No fluid levels. Mastoid air cells: Visualized mastoid air cells are well aerated. Bones: Unremarkable. No acute fracture. Soft tissues: Unremarkable. IMPRESSION: No acute intracranial pathology.
--- NOTE | 2024-09-30 11:14 | XR_ITS ---
PROCEDURE INFORMATION: Exam: XR Chest Exam date and time: 09/30/2024 11:43 AM Age: 58 years old Clinical indication: Other: Confusion, general weakness TECHNIQUE: Imaging protocol: Radiologic exam of the chest. Views: 1 view. COMPARISON: No relevant prior studies available. FINDINGS: Tubes, catheters and devices: There is a electronic device overlying the right upper chest with leads extending into the neck. Lungs: Unremarkable. No consolidation. Pleural spaces: Unremarkable. No pleural effusion. No pneumothorax. Heart/Mediastinum: Unremarkable. No cardiomegaly. Bones/joints: Unremarkable. IMPRESSION: No acute cardiopulmonary process.
[2024-09-30 11:24] LABS: Basophils % 0.2 % (0.1-2.0); Eosinophils # 0.1 Kmm3 (0.0-0.4); Eosinophils % 0.4 % (0.1-12.0); Hematocrit 44.1 % (42.0-52.0); Hemoglobin 15.6 g/dL (14.1-18.0); Immature Granulocytes # 0.05 10^3uL; Immature Granulocytes % 0.4 %; Lymphocytes # 0.5 K/mm3 (0.7-4.5); Lymphocytes % 4.1 % (10-50); Mean Corpuscular HGB Conc 35.4 g/dL (31.8-35.4); Mean Corpuscular Hemoglobin 33.2 pg (27.0-31.2); Mean Corpuscular Volume 93.8 fl (80-94); Mean Platelet Volume 8.9 fl (7.4-10.4); Monocytes # 1.5 K/mm3 (0.1-1.0); Monocytes % 12.3 % (1.7-9.3); Neutrophils # 10.3 K/mm3 (1.8-7.8); Neutrophils % 82.6 % (37.0-80.0); Nucleated Red Blood Cells # 0 10^3/uL; Nucleated Red Blood Cells % 0 %; Platelet Count 246 K/mm3 (142-424); Red Cell Distribution Width 12.8 % (11.5-17.5); Red Cell Distribution Width-SD 43.8 fL; White Blood Count 12.4 K/mm3 (4.8-10.8)
[2024-09-30 11:26] LABS: Lactate Venous 1.7 mmol/L (0.4-2.0); VBG Base Excess 6.5 mmol/L (-2.4-2.3); VBG HCO3 30.2 mmol/L (23-30); VBG Oxygen Saturation 90.9 % (50-70); VBG PCO2 42.2 mmol/L (35-51); VBG PH 7.47 mmol/L (7.31-7.41); VBG PO2 54.4 mmol/L (28-40); VBG Total CO2 31.5 mmol/L (23-27)
[2024-09-30 11:29] LABS: Chloride 96 mmol/L (98-107)
[2024-09-30 11:30] LABS: Albumin Level 3.6 g/dl (3.5-5.0); Sodium 132 mmol/L (136-145)
--- NOTE | 2024-09-30 11:30 | PC.NURSE ---
Rounded on patient, no needs voiced at this time.
[2024-09-30 11:32] LABS: Alanine Aminotransferase 30 U/L (12-78); Alkaline Phosphatase 98 U/L (38-126); Aspartate Amino Transferase 29 U/L (17-59); Bilirubin,Total 0.4 mg/dl (0.2-1.3); Blood Urea Nitrogen 20 mg/dl (9-20); Carbon Dioxide 33 mmol/L (22.0-30.0); Creatinine Clearance Estimated 127 mL/min (50-200); Estimated Glomerular Filt Rate 77 ml/min (>60); GFR (African American) 94 ML/MIN (>60)
[2024-09-30 11:33] LABS: Albumin/Globulin Ratio 1.2 (1.1-1.8); Calcium 8.7 mg/dl (8.4-10.2); Globulin 2.9 g/dL (1.3-3.2); Glucose 120 mg/dl (74-100); Total Protein,Serum 6.5 g/dl (6.3-8.2)
--- NOTE | 2024-09-30 11:33 | HMH.EDGENADL ---
Discharge Plan Disposition Patient Disposition: Home, Self-Care Condition: Good Prescriptions Prescriptions: New levofloxacin 750 mg tablet 750 mg PO DAILY 7 Days Qty: 7 0RF Rx Instructions: start tomorrow 10/01/2024 No Action (DME) syringe with needle [BD Luer-Ellen Syringe] 3 mL 21 gauge x 1 1/2 syringe See Rx Instructions .ROUTE .MEDSUPPLY Qty: 100 Patient Comments: USE DIRECTED FOR WEEKLY INJECTIONS Rx Instructions: As directed testosterone cypionate 200 mg/mL oil IM WEEKLY Patient Comments: INJECT 1ML INJECT INTRAMUSCULARLY ONCE A WEEK. ergocalciferol (vitamin D2) 1,250 mcg (50,000 unit) capsule PO WEEKLY Patient Comments: TAKE 1 CAPSULE BY MOUTH EVERY WEEK hydrochlorothiazide 25 mg tablet PO DAILY Patient Comments: TAKE TWO (2) TABLETS ONCE DAILY. metformin 500 mg tablet extended release 24 hr PO Patient Comments: TAKE ONE (1) TABLET ONCE DAILY. rosuvastatin 10 mg tablet PO DAILY Patient Comments: TAKE ONE (1) TABLET EVERY DAY BY ORAL ROUTE. pravastatin 20 mg tablet PO DAILY Patient Comments: TAKE ONE (1) TABLET(S) EVERY DAY BY ORAL ROUTE. metoprolol succinate 50 mg tablet extended release 24 hr PO Patient Comments: TAKE ONE (1) TABLET EVERY DAY BY ORAL ROUTE FOR 90 DAYS. losartan 50 mg tablet PO DAILY Patient Comments: TAKE 1 TABLET ONCE DAILY. Referrals Follow up/Referrals: Tamika Johnson [Primary Care Provider, Medical] - See instructions Anabel Branch MD [Physician, Pulmonology] - See instructions Activity Restrictions/Add. Instructions Additional Instructions/Restrictions: You were evaluated in the emergency department today. At this time, your lab work is reassuring with the exception of mild low potassium and low sodium. You were given IV fluids and replacement of this. You also have a UTI, so we are prescribing you antibiotics. Please follow-up closely with a primary care provider over the next week for reassessment. I am also recommending close follow-up with pulmonology, as he can help facilitate sleep study. Do not drive or operate heavy machinery while you are having these frequent episodes of falling asleep. Return to the emergency department for new or worsening symptoms. Clinical Impressions Clinical Impression: Fatigue, Sleep disorder, Hypokalemia, Hyponatremia, UTI (urinary tract infection) Stand Alone Forms Stand Alone Forms: Work/School Release Instructions Patient Instructions: DI for Urinary Tract Infection (UTI), DI for Fatigue, DI for Hypokalemia, DI for Obstructive Sleep Apnea -- Adult Print Language Print Language: Maori Discharge ED Provider: Elsa Gonsalves General Adult HPI General Chief complaint: Weakness Stated complaint: Disoriented, fatigue, weakness Time Seen by Provider: 09/30/24 10:54 Mode of Arrival: Ambulatory Source of Information: Patient Description of Symptoms (Recalled from ER Triage Doc. by RN): pt presents to the ED with c/o not being able to stay awake and weakness that started 4 months ago. pt reports I'm drowsy on and off all day, everyday . pt states when he is driving or talking to other he can't even stay awake. pt has trouble sleeping at night. no headache or chest pain noted. History of Present Illness HPI narrative: This patient is a 58-year-old male with a history of JESSICA, hypertension, hyperlipidemia, diabetes presenting to the emergency department for evaluation with concern for 3 months of fatigue and falling asleep frequently. Patient states that he is not able to stay awake and has not been able to work or drive because he falls asleep doing anything. He states that he is drowsy on and off all day. His neighbor helps bring him in and states that he has not been himself and is seemed confused, which has been slowly worsening over the last few months. He states usually at night he sleeps from 9 PM to 3 AM and then off and on throughout the entire day. He denies any headache, vision changes, numbness, tingling, unilateral weakness, chest pain, shortness of breath, abdominal pain, or other concerns. He has not seen anyone for this. Related Data Home Medications ?Medication ?Instructions ?Recorded ?Confirmed ergocalciferol (vitamin D2) 1,250 PO WEEKLY 07/20/23 07/20/23 mcg (50,000 unit) capsule hydrochlorothiazide 25 mg tablet mg PO DAILY 07/20/23 07/20/23 losartan 50 mg tablet mg PO DAILY 07/20/23 07/20/23 metformin 500 mg tablet,extended mg PO 07/20/23 07/20/23 release 24 hr metoprolol succinate 50 mg mg PO 07/20/23 07/20/23 tablet,extended release 24 hr pravastatin 20 mg tablet mg PO DAILY 07/20/23 07/20/23 rosuvastatin 10 mg tablet mg PO DAILY 07/20/23 07/20/23 syringe with needle 3 mL 21 gauge #100 ea 07/20/23 07/20/23 x 1 1/2 (BD Luer-Ellen Syringe) testosterone cypionate 200 mg/mL mg IM WEEKLY 07/20/23 07/20/23 intramuscular oil Previous Rx's ?Medication ?Instructions ?Recorded levofloxacin 750 mg tablet 750 mg PO DAILY 7 days #7 tabs 09/30/24 Allergies Allergy/AdvReac Type Severity Reaction Status Date / Time No Known Allergies Allergy Verified 07/20/23 13:25 [facility] Disclaimer: The information contained in this section may have been updated after the patient was seen, as this information can be updated by other users. Social History Smoking Status: Current every day smoker tobacco type: cigarettes packs per day: 3 alcohol intake: current current occupational status: other Travel in the last 8 weeks?: None Have you lived/traveled outside [place] in past 30 days?: No Contact w/someone who lives/traveled outside [place] past 30 days?: No Exposure to someone with infectious disease in past 14 days?: No Do you have a fever (greater than 100.4 F or 38 C)?: No Have you tested positive for COVID-19?: No Exposed to someone with COVID-19 in past 14 days?: No Do you have a sore throat?: No Do you have a cough?: No Do you have any weakness?: No Do you have any diarrhea?: No Are you experiencing any unusual bleeding?: No Do you have any muscle aches/pain?: No Do you have any abdominal pain?: No Are you experiencing loss of taste or smell?: No ROS Obtained: Yes All systems reviewed & no additional complaints except as documented Physical Exam General General appearance: alert and in no apparent distress Head Head exam: atraumatic and normocephalic Eye Eye exam: Present normal appearance, PERRL and EOMI ENT ENT exam: Present normal exam, normal oropharynx, mucous membranes moist and normal external ear exam Neck Neck exam: Present normal inspection, full ROM and trachea midline; Absent tenderness Chest Chest inspection: Present normal inspection and symmetric chest wall rise; Absent tenderness Respiratory Respiratory exam: Present normal lung sounds bilaterally; Absent respiratory distress, wheezes, stridor or accessory muscle use Cardiovascular Cardiovascular exam: Present regular rate and normal rhythm Abdominal Exam Abdominal exam: Present soft; Absent distention, tenderness or guarding Extremities Exam Extremities exam: Present normal inspection, full ROM and normal capillary refill; Absent tenderness or edema Back Exam Back exam: Present normal inspection and full ROM; Absent tenderness Neurological Exam Neurological exam: Present alert, oriented X3, CN II-XII intact and normal gait; Absent motor sensory deficit Psychiatric Psychiatric exam: Present normal affect and normal mood Skin Skin exam: Present warm and dry Medical Decision Making Medical Records Medical records reviewed: Yes I reviewed the patient's medical records. Screening: Per USPSTF and CDC recommendations, given the prevalence of disease in our region, it is our hospital?s policy to screen for HIV and viral Hepatitis for all patients aged 18 and over and those with ongoing risk factors. Jim Inquiry Pt receiving controlled substance: No Vital Signs: 09/30/24 10:55 09/30/24 11:00 09/30/24 11:01 Temperature 97.9 F Temperature Source Oral Pulse Rate 87 86 Pulse Rate [Right] 84 Respiratory Rate 17 16 Blood Pressure 133/96 H 118/80 Blood Pressure [Right Arm] 133/96 H Blood Pressure Mean Blood Pressure Mean [Right Arm] 108 Blood Pressure Source [Right Arm] Automatic Cuff Blood Pressure Position [Right Arm] Supine 02 Sat by Pulse Oximetry 97 95 97 Oxygen Delivery Method Room Air Room Air Room Air 09/30/24 11:16 09/30/24 11:30 09/30/24 12:00 Temperature Temperature Source Pulse Rate 84 84 Pulse Rate [Right] Respiratory Rate 20 15 Blood Pressure 119/79 128/102 H Blood Pressure [Right Arm] Blood Pressure Mean 87 Blood Pressure Mean [Right Arm] Blood Pressure Source [Right Arm] Blood Pressure Position [Right Arm] 02 Sat by Pulse Oximetry 97 97 94 L Oxygen Delivery Method Room Air 09/30/24 12:30 09/30/24 13:00 09/30/24 13:30 Temperature Temperature Source Pulse Rate 83 84 87 Pulse Rate [Right] Respiratory Rate 23 18 Blood Pressure 118/78 113/65 130/79 Blood Pressure [Right Arm] Blood Pressure Mean 81 Blood Pressure Mean [Right Arm] Blood Pressure Source [Right Arm] Blood Pressure Position [Right Arm] 02 Sat by Pulse Oximetry 97 95 96 Oxygen Delivery Method Room Air Room Air 09/30/24 14:03 Temperature 97.9 F Temperature Source Pulse Rate 73 Pulse Rate [Right] Respiratory Rate 16 Blood Pressure 128/85 Blood Pressure [Right Arm] Blood Pressure Mean Blood Pressure Mean [Right Arm] Blood Pressure Source [Right Arm] Blood Pressure Position [Right Arm] 02 Sat by Pulse Oximetry Oxygen Delivery Method Lab Data Lab results reviewed: Yes I reviewed the patient's lab results. Lab Results 09/30/24 11:15: WBC 12.4 H, RBC 4.70, Hgb 15.6, Hct 44.1, MCV 93.8, MCH 33.2 H, MCHC 35.4, RDW 12.8, Plt Count 246, MPV 8.9, Neut % (Auto) 82.6 H, Lymph % (Auto) 4.1 L, [place] % (Auto) 12.3 H, Eos % (Auto) 0.4, Baso % (Auto) 0.2, Neut # (Auto) 10.3 H, Lymph # (Auto) 0.5 L, [place] # (Auto) 1.5 H, Eos # (Auto) 0.1, Baso # (Auto) 0.0, Total Counted 100, Neutrophils % (Manual) 78 H, Lymphocytes % (Manual) 12, Monocytes % (Manual) 10 H, Platelet Estimate Normal, RBC Morphology Normal, Sodium 132 L, Potassium 3.0 L, Chloride 96 L, Carbon Dioxide 33 H, Anion Gap 6.0, BUN 20, Creatinine 1.00, Estimated Creat Clear 127, Estimated GFR 77, Est GFR ( Amer) 94, Glucose 120 H, Calcium 8.7, Total Bilirubin 0.4, AST 29, ALT 30, Alkaline Phosphatase 98, Total Protein 6.5, Albumin 3.6, Globulin 2.9, Albumin/Globulin Ratio 1.2, TSH 0.24 L, Thyroxine (T4) 8.0, Plasma/Serum Alcohol < 10, HCV Ab JUDITH w/Rflx PCR Qn Negative, HIV Ag/Ab Combo Qual Negative 09/30/24 11:19: VBG pH 7.47 H, VBG pCO2 42.2, VBG pO2 54.4 H, VBG HCO3 30.2 H, VBG Total CO2 31.5 H, VBG O2 Saturation 90.9 H, VBG Base Excess 6.5 H, VBG Lactic Acid 1.7 09/30/24 12:06: Urine Color Yellow, Urine Appearance Clear, Urine pH 6.5, Ur Specific [place] 1.010, Urine Protein Negative, Urine Glucose (UA) Negative, Urine Ketones Negative, Urine Blood Trace-i, Urine Nitrate Positive A, Urine Bilirubin Negative, Urine Urobilinogen 0.2, Ur Leukocyte Esterase 2+ A, Urine RBC Occasional, Urine WBC 20-50, Ur Squamous Epith Cells 5-10, Urine Bacteria 1+ 09/30/24 12:07: Urine Opiates Screen Negative, Urine Methadone Screen Negative, Ur Barbituates Screen Negative, Ur Phencyclidine Scrn Negative, Ur Amphetamines Screen Negative, U Benzodiazepines Scrn Negative, Urine Cocaine Screen Negative, U Marijuana (THC) Screen Negative 09/30/24 11:15 09/30/24 11:15 Orders (Tests/Meds): ED MEDICATIONS Discontinued Medications Generic Name Dose Route Start Last Admin Trade Name Freq PRN Reason Stop Dose Admin Lactated Ringer's 1,000 mls @ 999 mls/hr 09/30/24 11:54 09/30/24 12:11 Lactated Ringer's 1000 Ml Bag IV 09/30/24 12:54 999 mls/hr .Q1H1M ONE Administration Potassium Chloride/Water 100 mls @ 100 mls/hr 09/30/24 11:54 09/30/24 12:11 Potassium Chloride 10meq/100ml Ivpb IV 09/30/24 12:53 100 mls/hr ONCE ONE Administration Levofloxacin 750 mg 09/30/24 13:53 09/30/24 14:18 Levofloxacin 750 Mg Tablet PO 09/30/24 13:54 Not Given ONCE ONE Potassium Chloride 40 meq 09/30/24 11:54 09/30/24 12:10 Potassium Chloride 20meq Tab PO 09/30/24 11:55 40 meq ONCE ONE Administration ORDERS Category Date Time Status CT head/brain wo con Stat Cat Scan 09/30/24 11:13 Completed CXR --portable [XR chest portable] Stat Exams 09/30/24 11:14 Completed CBC w/Auto Diff [Complete Blood Count Auto Diff] Stat Lab 09/30/24 11:15 Completed CMP [Comprehensive Metabolic Panel] Stat Lab 09/30/24 11:15 Completed Ethyl Alcohol Stat Lab 09/30/24 11:15 Completed HIV Combo Stat Lab 09/30/24 11:15 Completed Hepatitis C Ab Qual. W/ RFX Stat Lab 09/30/24 11:15 Completed T4 (Thyroxine) Stat Lab 09/30/24 11:15 Completed TSH [Thyroid Stimulating Hormone] Stat Lab 09/30/24 11:15 Completed UA [Urinalysis and Microscopic] Stat Lab 09/30/24 12:06 Completed UDS [Drug Screen,Urine] Stat Lab 09/30/24 12:07 Completed Urine Culture Stat Micro 09/30/24 12:06 Received VBG [Venous Blood Gas] Stat RT 09/30/24 11:19 Completed ECG Data Tracing #1: I reviewed this ECG and interpreted as documented below: Normal sinus rhythm with sinus arrhythmia with a ventricular of 81 bpm. Right axis deviation. No acute STEMI. ECG initial impression date: 09/30/24 ECG initial impression time: 10:54 Medical Decision Narrative: In summary, this patient is a 58-year-old male presenting to the Emergency Department for evaluation of fatigue and falling asleep frequently throughout the day for the last several months. Differential diagnoses considered include but are not limited to sleep apnea, hypothyroidism, vitamin deficiency, narcolepsy. Ruling out the most morbid conditions drove assessment. It should be noted patient's history includes sleep apnea, hypertension, hyperlipidemia, diabetes which may or may not be at goal therapy. This complicates all aspects of care by increasing patient's risk for morbidity. I reviewed patient's past medical records and noted prior evaluations by ENT for JESSICA/hypopnea syndrome. He also described fatigue throughout the day at that time back in June 2023 On exam, patient is sitting upright in no acute distress with no focal neurologic deficits. Cardiopulmonary and abdominal exams are reassuring. He is alert and oriented with normal vitals on cardiac telemetry. Workup included CBC, CMP, TSH, T4, CT head without contrast, chest x-ray, urinalysis. I independently interpreted CT and x-ray prior to the radiologist read and noted no intracranial hemorrhage or large space-occupying lesion, no focal consolidation or pulmonary edema. Please see their read for final interpretation. EKG obtained is reassuring. Labs were obtained that demonstrated very mild leukocytosis which is nonspecific. He has mild hyponatremia and hypokalemia. He was given a bolus of IV fluids as well as IV and oral potassium repletion. TSH is mildly elevated, but T4 is normal. I advise that he follow-up with primary care for reassessment of this. His urinalysis is concerning for infection with 2+ leukocyte esterase and positive nitrates. He does note that his urine has been smelling bad and he said to urinate more frequently. Will elect to treat with oral Levaquin.. Overall, no concerns for sepsis based on clinical exam, and I feel the patient is appropriate for discharge with prescription for Levaquin to treat UTI and close follow-up with Dr. Mcmillan as well as primary care for further evaluation and management of his presumed sleep disorder this been affecting him for months now. He was given very strict return precautions Critical Care Critical Care Time Critical Care Time: No
[2024-09-30 11:46] LABS: Ethyl Alcohol < 10 mg/dl (0-10); MANUAL DIFFERENTIAL MANUAL DIFFERENTIAL (MANUAL DIFF)
[2024-09-30] MEDS: POTASSIUM CHLORIDE 20MEQ TAB 40 MEQ PO (12:10)
[2024-09-30] MEDS: LACTATED RINGERS 1000ML 1,000 ML 999 ML IV (12:11)
[2024-09-30] MEDS: KCl 10mEq/100ml 100 ML 100 MEQ IV (12:11)
[2024-09-30 12:13] LABS: Microscopic, Urine URINE MICROSCOPIC (MICROSCOPIC)
[2024-09-30 12:28] LABS: Lymphocytes % 12 % (10-50); Monocytes % 10 % (2-9); Neutrophils % 78 % (42-76); Platelet Estimate Normal; RBC Morphology Normal; Total Cells Counted 100
[2024-09-30 13:14] LABS: Barbiturates Screen,Urine Negative ng/ml (<200); Benzodiazepines Screen,Urine Negative ng/ml (<200)
[2024-09-30 13:15] LABS: Amphetamine/Metha Screen,Urine Negative ng/ml (<1000)
[2024-09-30 13:16] LABS: Cannabinoid Screen,Urine Negative ng/ml (<50); Methadone Screen,Urine Negative ng/ml (<300)
[2024-09-30 13:17] LABS: Cocaine Screen,Urine Negative ng/ml (<300)
[2024-09-30 13:18] LABS: Opiate Screen,Urine Negative ng/ml (<300)
[2024-09-30 13:19] LABS: Phencyclidine Screen,Urine Negative ng/ml (<25)
[2024-09-30 13:34] LABS: Appearance,Urine CLEAR (Clear); Bilirubin,Urine Negative (Negative); Blood, Urine TRACE-I (Negative); Color,Urine YELLOW (Yellow); Glucose,Urine (UA) Negative (Negative); Ketones,Urine Negative (Negative); Leukocyte Esterase,Urine 2+ (Negative); Nitrate,Urine POSITIVE (Negative); PH,Urine 6.5 (5.0-8.5); Protein,Urine Negative (Negative); Urobilinogen,Urine 0.2 EU/dl (0.2)
[2024-09-30 13:39] LABS: HIV Combo NEGATIVE (Negative)
[2024-09-30 13:48] LABS: Hepatitis C Ab Qual. W/ RFX NEGATIVE (Negative)
[2024-09-30 13:58] LABS: Thyroid Stimulating Hormone 0.24 uIU/mL (0.465-4.68)
[2024-09-30 14:30] LABS: Bacteria,Urine 1+ /lpf; RBC,Urine Occasional #/hpf (0-3); WBC,Urine 20-50 #/hpf (0-3)
--- NOTE | 2024-10-03 09:09 | PC.NURSE ---
URINE CULTURE DISCUSSED WITH DR DESAI, NO NEW ORDERS
--- NOTE | 2024-10-04 09:09 | PC.NURSE ---
I spoke with about the pts final culture results. No change needed in treatment plan.
== END 2024-09-30 14:17 | disposition home or self-care (01) ==
PROVIDERS: Emergency Provider Emergency Medicine; PCP Family Medicine
DX: N39.0 Urinary tract infection, site not specified (principal); E87.6 Hypokalemia; E87.1 Hypo-osmolality and hyponatremia; R53.83 Other fatigue; R41.0 Disorientation, unspecified; F17.210 Nicotine dependence, cigarettes, uncomplicated; Z11.59 Encounter for screening for other viral diseases; Z11.4 Encounter for screening for human immunodeficiency virus [HIV]
CPT/HCPCS: 70450; 71045; 80053; 80074; 80307; 80320; 81001; 82803; 84436; 84443; 85007; 85025; 85027; 87086; 87088; 87186; 87389; 93005; 96365; 99285; J3480; J7120